=== PATIENT | female | born 2000 | race Caucasian/White ===

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

== ENCOUNTER 2019-10-03 22:42 | Emergency (ER) | payer MEDICAID ==
[~2019-10-03] VITALS: Ht 162.6 cm; Wt 71.2 kg
[2019-10-03 22:49] VITALS: Ht 162.6 cm; Wt 71.2 kg
[2019-10-04 00:12] VITALS: BP 126/73
== END 2019-10-04 00:12 | disposition home or self-care (01) ==
LOC: ED 22:42
DX: J40 Bronchitis, not specified as acute or chronic (principal); Z88.0 Allergy status to penicillin; Z88.8 Allergy status to other drugs, medicaments and biological substances

== ENCOUNTER 2020-01-27 21:21 | Emergency (ER) | payer OTHER, SELFPAY ==
[~2020-01-27] VITALS: Ht 170.2 cm; Wt 68.0 kg
[2020-01-27 21:23] VITALS: Ht 170.2 cm; Wt 68.0 kg
[2020-01-27 22:55] VITALS: BP 152/97
== END 2020-01-27 22:55 | disposition home or self-care (01) ==
LOC: ED 21:21
DX: B34.9 Viral infection, unspecified (principal); Z20.828 Contact with and (suspected) exposure to other viral communicable diseases; Z90.89 Acquired absence of other organs; Z88.0 Allergy status to penicillin; Z88.8 Allergy status to other drugs, medicaments and biological substances
CPT/HCPCS: U0003-CS

== ENCOUNTER 2020-04-18 15:36 | Emergency (ER) | payer OTHER ==
[~2020-04-18] VITALS: Ht 162.6 cm; Wt 75.3 kg
[2020-04-18 15:55] VITALS: Ht 162.6 cm; Wt 75.3 kg
[2020-04-18 16:53] VITALS: BP 144/87
== END 2020-04-18 16:53 | disposition home or self-care (01) ==
LOC: ED 15:36
DX: H65.91 Unspecified nonsuppurative otitis media, right ear (principal); Z90.89 Acquired absence of other organs; Z88.0 Allergy status to penicillin; Z88.8 Allergy status to other drugs, medicaments and biological substances